=== PATIENT | male | born 1950 | race Caucasian/White ===

== ENCOUNTER 2022-01-09 13:21 | Emergency (ER) | payer MEDICARE, OTHER, SELFPAY ==
[2022-01-09 13:54] VITALS: BP 134/80; PULSE 83; RESP 18; TEMP 36.5; O2SAT 98
--- NOTE | 2022-01-09 14:00 | DI.RAD_ITS ---
Exam(s) XR SHOULDER RT COMPLETE 2+V EXAM: XR SHOULDER RT COMPLETE 2+V CLINICAL HISTORY: fall injury. TECHNIQUE: 2D digital imaging was performed. Five views. COMPARISON: No exams were available for comparison FINDINGS: BONES: Old scapular fracture. No acute fracture is present. No bony destructive lesion is seen. JOINTS: Widening of the AC joint, acute versus chronic AC separation. Degenerative changes glenohumeral joint and AC joint. SOFT TISSUE: Normal. IMPRESSION: Question acute versus old acromioclavicular joint separation. Old scapular fracture. DATA REPOSITORY: RADIATION DOSE DELIVERED:
--- NOTE | 2022-01-09 14:33 | DI.VRAD_ITS ---
PROCEDURE INFORMATION: Exam: XR Right Shoulder Exam date and time: 01/09/2022 2:17 PM Age: 71 years old Clinical indication: Pain; Shoulder; Right TECHNIQUE: Imaging protocol: Radiologic exam of the Right shoulder. Views: 2 or more views. COMPARISON: No relevant prior studies available. FINDINGS: Bones/joints: Prior scapula fracture. Type 3 or 5 AC joint separation. Degenerative changes of the acromioclavicular joint. Degenerative changes of the glenohumeral joint. No evidence for acute bony injury. Soft tissues: Unremarkable. IMPRESSION: Old scapula fracture. Type 3 or 5 AC joint separation. Dictated and Authenticated by: Vickie Eddy MD. Ordering:MAGDALENA Lopes MD
[2022-01-09 14:45] VITALS: BP 128/78; PULSE 80; TEMP 37.6; O2SAT 95
--- NOTE | 2022-01-09 17:03 | ED.GENADUL_ITS ---
Discharge Plan Disposition Patient Disposition: Home Condition: Stable Discharge Details Clinical Impression: Dislocation of right acromioclavicular joint Primary Care Provider: Pey[place],Local ED Provider: Colleen Clarke Discharge Instructions Instructions: Acromioclavicular Separation (ED) Additional Instructions: Please wear the sling and take it easy for the next week. May ice. Please take Tylenol or Ibuprofen with food every 4-6 hours as needed for pain and swelling. Take the oxycodone with food for any moderate to severe pain only if needed. Please follow-up with orthopedics within the next week in your hometown. You were given a disc of the x-rays. Follow up with primary care provider in 3-5 days. Return to ED sooner if any worsening or concerns. Increase oral fluids. Discharge Data Discharge Date/Time-TO BE ENTERED AT DEPARTURE: 01/09/22 17:36 Medical Decision Making 71-year-old male presents to the ER with chief complaint of right shoulder pain status post a skiing injury which occurred prior to arrival. No complaints. No chest pain denies hitting his head or any loss of consciousness. X-ray results are noted below. Consulted with orthopedics on-call Dr. Alvarez regarding x-ray he recommends a sling and follow-up within a week. Patient does live in [place] and he will follow-up in [place]. I did discuss home care with him. We will make a disc for him to go home with. Extremity is pink warm and dry, distal CMS is intact. This text was generated using [employer]square dictation system, please disregard any oddities of phrase or misspellings. Imaging Data Radiologic Study: Imaging: X-Ray Radiologist's impression: Imaging protocol: Radiologic exam of the Right shoulder. Views: 2 or more views. COMPARISON: No relevant prior studies available. FINDINGS: Bones/joints: Prior scapula fracture. Type 3 or 5 AC joint separation. Degenerative changes of the acromioclavicular joint. Degenerative changes of the glenohumeral joint. No evidence for acute bony injury. Soft tissues: Unremarkable. IMPRESSION: Old scapula fracture. Type 3 or 5 AC joint separation. Sign Out No HPI General Mode of arrival: ambulatory . Date/Time Provider Initiated Documentation: 01/09/22 14:02 . Limitations to Documentation: no limitations . Information obtained by: patient, RN notes reviewed and old records reviewed . HPI Narrative: 71-year-old male presents to the ER with chief complaint of right shoulder pain status post a skiing injury which occurred prior to arrival. No complaints. No chest pain denies hitting his head or any loss of consciousness. He denies any previous shoulder injury. X-ray was performed in triage prior to my eval which shows a AC joint separation. Distal extremity is pink warm dry CMS is intact. General Stated Complaint: Orthopedic ASAD: 4 Review of Systems All systems reviewed & are unremarkable except as noted in HPI and below Musculoskeletal Musculoskeletal: Reports as per HPI, Denies deformity and Reports arthralgias PFSH All Active Problems Dislocation of right acromioclavicular joint (Acute) Social History Smoking/Tobacco Use Status: Never Smoking risk assessment performed?: Yes Alcohol Intake: never Drug use: Never Substance use type: does not use Do you feel safe at home: Yes Do you feel safe in your relationship?: Yes Exam Narrative Exam Narrative: General: Well Developed, Awake and Alert, conversant. Skin: Warm and Dry HEENT: Head: No palpable deformities, Normocephalic Eyes: Pupils PERRLA, EOM's intact. No periorbital eccymosis or step off Ears: Canal patent. Tympanic membranes are clear . No bruner's sign, no hemptympanum. Nose/Face: Atraumatic. Facial bones nontender to palpation and stable with manipulation. Mouth/Throat: No intraoral trauma. Teeth and mandible are intact. Neck: No midline tenderness, no step off, no deformity to palpation of C-spine. Trachea midline. Chest: No surface trauma. Nontender without crepitus or deformity. Lungs clear to ausculatation bilaterally. Heart: RRR, no rubs, murmurs or gallop. Abdomen: No abrasions, ecchymosis, or surface trauma. Nondistended. Nontender to palpation no guarding, rebound, or rigidity. Pelvis: Nontender to palpation and stable to compression. Femoral pulses strong and equal Extremities: no surface trauma. Sensation intact. Peripheral pulses intact and equal. Neuro: ANO x4, GCS 15, cranial nerves II through XII intact. Motor and sensory exam nonfocal. Reflexes are symmetric. Course Vital Signs Vital signs: Vital Signs Temperature 36.5 C 01/09/22 13:54 Pulse 83 01/09/22 13:54 Respiratory Rate 18 01/09/22 13:54 Blood Pressure 134/80 01/09/22 13:54 Pulse Oximetry 98 01/09/22 13:54 Temperature 37.6 C 01/09/22 14:45 Temperature Source Tympanic 01/09/22 14:45 Pulse 80 01/09/22 14:45 Respiratory Rate 18 01/09/22 13:54 Blood Pressure 128/78 01/09/22 14:45 Blood Pressure Position Sitting 01/09/22 13:54 Pulse Oximetry 95 01/09/22 14:45 Oxygen Delivery Method Room Air 01/09/22 14:45 Oxygen Flow Rate 0 01/09/22 14:45 Pain Level 5 01/09/22 14:45
[2022-01-09] MEDS: Acetaminophen 325 MG TAB 650 MG PO (17:37)
== END 2022-01-09 17:36 | disposition home or self-care (01) ==
PROVIDERS: Emergency Provider Registered Nurse Emergency
DX: S43.101A Unspecified dislocation of right acromioclavicular joint, initial encounter (principal); X58.XXXA Exposure to other specified factors, initial encounter; Y93.23 Activity, snow (alpine) (downhill) skiing, snowboarding, sledding, tobogganing and snow tubing
CPT/HCPCS: 99283; 73030; 99284